=== PATIENT | male | born 2000 | race Caucasian/White ===

== ENCOUNTER 2021-09-19 09:58 | Outpatient (CLI) | payer OTHER, SELFPAY ==
[2021-09-19 10:09] VITALS: BP 126/72; PULSE 92; RESP 16; TEMP 36.7; O2SAT 97; BMI 24.4
== END 2021-09-19 23:59 | disposition home or self-care (01) ==
PROVIDERS: Visit Provider Specialist
DX: C62.01 Malignant neoplasm of undescended right testis (principal); D70.1 Agranulocytosis secondary to cancer chemotherapy
CPT/HCPCS: 36569